=== PATIENT | female | born 1965 | race Two or more races ===

== ENCOUNTER 2023-07-16 13:44 | Emergency (ER) | payer OTHER ==
[2023-07-16 14:00] VITALS: BMI 29.2
[2023-07-16] MEDS ORDERED: AZITHROMYCIN IVPB 500 MG in DEXTROSE 5%-WATER - 250 ML IVPB ONE (16:02)
[2023-07-16] MEDS ORDERED: CEFTRIAXONE 1 GM in DEXTROSE 5%-WATER - 100 ML IVPB ONE (16:02)
[2023-07-16] MEDS ORDERED: CEFTRIAXONE 1 GM/50 ML BAG ONE (16:21)
[2023-07-16] MEDS ORDERED: AZITHROMYCIN IVPB 500 MG/250 ML BAG IVPB ONE ×2 (16:21→16:56)
[2023-07-16 16:44] LABS: BASO % 0.4 % (0-2.0); EOS % 0.7 % (0-4.5); HEMATOCRIT 34.3 % (32.4-45.2); HEMOGLOBIN 11.2 GM/dL (10.7-15.3); LYMPH % 17.3 % (8-40); MCHC 32.7 g/dl (32.0-36.0); MEAN CELL VOLUME 82.6 fl (80-96); MEAN PLT VOLUME 8.4 fl (7.5-11.1); NEUT % 68.6 % (42.8-82.8); PLATELET COUNT 228 10^3/uL (134-434); RBC 4.15 M/mm3 (3.60-5.2); RDW 14.1 % (11.6-15.6); WHITE BLOOD COUNT 10.8 K/mm3 (4.0-10.0)
[2023-07-16 16:52] LABS: EPI CELLS 14 /uL (0-25.1); HYALINE CASTS 0 /uL (0-3.1); URINE APPEARANCE CLEAR; URINE BACTERIA 54 /uL (0-1359); URINE BILIRUBIN NEGATIVE (NEGATIVE); URINE COLOR YELLOW; URINE GLUCOSE (UA) NEGATIVE (NEGATIVE); URINE KETONE NEGATIVE (NEGATIVE); URINE LEUK ESTERASE NEGATIVE (NEGATIVE); URINE NITRITE NEGATIVE (NEGATIVE); URINE PROTEIN NEGATIVE (NEGATIVE); URINE RBC 8 /uL (0-23.9); URINE UROBILINOGEN 0.2 mg/dL (0.2-1.0); URINE WBC 4 /uL (0-25.8)
[2023-07-16 16:59] LABS: POTASSIUM 4.5 mmol/L (3.5-5.1)
[2023-07-16 17:01] LABS: CALCIUM 9.5 mg/dL (8.5-10.1)
[2023-07-16 17:02] LABS: ALBUMIN 3.4 g/dl (3.4-5.0); BLOOD UREA NITROGEN 14.3 mg/dL (7-18)
[2023-07-16 17:05] LABS: CREATININE 0.7 mg/dL (0.55-1.3)
[2023-07-16 17:06] LABS: BILIRUBIN,TOTAL 0.2 mg/dL (0.2-1)
[2023-07-16 17:07] LABS: TOT PROT 7.2 g/dl (6.4-8.2)
[2023-07-16 17:32] VITALS: TEMP 99.1
[2023-07-16] MEDS ORDERED: ACETAMINOPHEN 1000 MG/100 ML BAG IVPB ONE (18:12)
[2023-07-16] MEDS ORDERED: guaiFENesin 200 MG/10 ML 10 ML UNIT-DOSE CUPS PO ONE (18:13)
[2023-07-16] MEDS ORDERED: ACETAMINOPHEN INJECTION 100 ML IVPB ONE (19:05)
[2023-07-16] MEDS ORDERED: guaiFENesin 200 MG/10 ML 10 ML UNIT-DOSE CUPS ONE (19:05)
[2023-07-16] MEDS ORDERED: SODIUM CHLORIDE 0.9% 500 ML INFUS.BAG IV ONE (19:11)
[2023-07-16 20:39] VITALS: BP 105/62; RESP 18
[2023-07-16 20:41] VITALS: PULSE 100
== END 2023-07-16 20:51 | disposition home or self-care (01) ==
LOC: JERFT 13:44
PROC: 3E03329 Introduction of Other Anti-infective into Peripheral Vein, Percutaneous Approach (ICD-10-PCS; principal; 2023-07-16)
PROC: 3E03329 Introduction of Other Anti-infective into Peripheral Vein, Percutaneous Approach (ICD-10-PCS; 2023-07-16)
PROC: 3E033GC Introduction of Other Therapeutic Substance into Peripheral Vein, Percutaneous Approach (ICD-10-PCS; 2023-07-16)
DX: R51.9 Headache, unspecified (principal); M79.10 Myalgia, unspecified site; R50.9 Fever, unspecified; R05.9 Cough, unspecified; R06.02 Shortness of breath; R09.89 Other specified symptoms and signs involving the circulatory and respiratory systems; J18.1 Lobar pneumonia, unspecified organism; Z20.822 Contact with and (suspected) exposure to COVID-19
CPT/HCPCS: 0241U-QW; 71046-TC-FY; 80053; 81003; 84484; 85025; 87086; 93005; 93010; 99285-25

== ENCOUNTER 2023-11-21 15:26 | Inpatient (IN) | payer OTHER ==
[2023-11-21] MEDS ORDERED: ALBUTEROL SO4 2.5/IPRATROPIUM 0.5 INH SOL 3 ML VIAL.NEB. NEB ONE (17:29)
[2023-11-21] MEDS: ALBUTEROL SO4 2.5/IPRATROPIUM 0.5 INH SOL 3 ML VIAL.NEB. NEB ONE (17:44)
[2023-11-21 17:51] LABS: BASO % 1.3 % (0-2.0); EOS % 1.8 % (0-4.5); HEMATOCRIT 37.2 % (32.4-45.2); HEMOGLOBIN 12.3 GM/dL (10.7-15.3); MCH 27.2 pg (25.7-33.7); MEAN CELL VOLUME 82.4 fl (80-96); MEAN PLT VOLUME 8.9 fl (7.5-11.1); MONO % 5.7 % (3.8-10.2); NEUT % 65.2 % (42.8-82.8); PLATELET COUNT 240 10^3/uL (134-434); RBC 4.51 M/mm3 (3.60-5.2); RDW 16.2 % (11.6-15.6); WHITE BLOOD COUNT 6.6 K/mm3 (4.0-10.0)
[2023-11-21 17:55] LABS: VENOUS BASE EXCESS -4.1 mmol/L (-2-2); VENOUS O2 SATURATION 47.8 % (70-80); VENOUS PH 7.316 (7.310-7.410)
[2023-11-21 18:11] LABS: POTASSIUM 4.6 mmol/L (3.5-5.1)
[2023-11-21 18:13] LABS: CALCIUM 9.8 mg/dL (8.5-10.1)
[2023-11-21 18:14] LABS: BLOOD UREA NITROGEN 17.7 mg/dL (7-18)
[2023-11-21 18:17] LABS: CREATININE 0.8 mg/dL (0.55-1.3); PHOSPHOROUS 3.4 mg/dL (2.5-4.9)
[2023-11-21 18:18] LABS: BILIRUBIN,TOTAL 0.4 mg/dL (0.2-1)
[2023-11-21 18:19] LABS: TOT PROT 8.2 g/dl (6.4-8.2)
[2023-11-21 18:20] LABS: N-TERMINAL BNP 8213.7 pg/ml (5-125)
[2023-11-21] MEDS ORDERED: FUROSEMIDE 40 MG/4 ML INJECTABLE VIAL ONE (20:23)
[2023-11-21] MEDS: FUROSEMIDE 40 MG/4 ML INJECTABLE VIAL IVPUSH ONE (20:33)
[2023-11-22 00:24] VITALS: BMI 24.3
[2023-11-22] MEDS ORDERED: FUROSEMIDE 40 MG/4 ML INJECTABLE VIAL IVPUSH SCH (01:00)
[2023-11-22] MEDS ORDERED: ALBUTEROL SO4 2 MG TABLET PO PRN (02:13)
[2023-11-22] MEDS ORDERED: ALBUTEROL SO4 HFA INHALER IH PRN (02:49)
[2023-11-22] MEDS: FUROSEMIDE 40 MG/4 ML INJECTABLE VIAL IVPUSH SCH (03:11)
[2023-11-22] MEDS: ENOXAPARIN NA (PORCINE) 40 MG/0.4 ML DISP.SYRIN SQ SCH (10:02)
[2023-11-22] MEDS: LISINOPRIL 20 MG TABLET PO SCH (10:02)
[2023-11-22] MEDS: metoPROLOL SUCCINATE 25 MG TAB.SR.24H (FP) PO SCH (15:16)
[2023-11-23 07:46] LABS: POTASSIUM 4.9 mmol/L (3.5-5.1)
[2023-11-23 07:51] LABS: ALBUMIN 3.4 g/dl (3.4-5.0); BLOOD UREA NITROGEN 19.1 mg/dL (7-18); CALCIUM 10.2 mg/dL (8.5-10.1)
[2023-11-23 07:55] LABS: BILIRUBIN,TOTAL 0.4 mg/dL (0.2-1); CREATININE 0.8 mg/dL (0.55-1.3)
[2023-11-23 07:56] LABS: TOT PROT 7.1 g/dl (6.4-8.2)
[2023-11-23 09:00] LABS: HEMATOCRIT 37.2 % (32.4-45.2); HEMOGLOBIN 12.1 GM/dL (10.7-15.3); MCH 26.9 pg (25.7-33.7); MCHC 32.4 g/dl (32.0-36.0); MEAN CELL VOLUME 83.1 fl (80-96); MEAN PLT VOLUME 8.9 fl (7.5-11.1); PLATELET COUNT 211 10^3/uL (134-434); RBC 4.48 M/mm3 (3.60-5.2); RDW 15.6 % (11.6-15.6); WHITE BLOOD COUNT 5.5 K/mm3 (4.0-10.0)
[2023-11-23] MEDS: LOSARTAN POTASSIUM 25 MG TABLET PO SCH (09:24)
[2023-11-24 07:37] LABS: HEMOGLOBIN 11.9 GM/dL (10.7-15.3); MCH 26.9 pg (25.7-33.7); MCHC 32.2 g/dl (32.0-36.0); MEAN CELL VOLUME 83.4 fl (80-96); MEAN PLT VOLUME 8.9 fl (7.5-11.1); PLATELET COUNT 196 10^3/uL (134-434); RBC 4.43 M/mm3 (3.60-5.2); WHITE BLOOD COUNT 5.1 K/mm3 (4.0-10.0)
[2023-11-24 07:55] LABS: POTASSIUM 4.9 mmol/L (3.5-5.1)
[2023-11-24 07:57] LABS: CALCIUM 9.4 mg/dL (8.5-10.1)
[2023-11-24 07:58] LABS: BLOOD UREA NITROGEN 21.8 mg/dL (7-18)
[2023-11-24 08:01] LABS: CREATININE 0.7 mg/dL (0.55-1.3)
[2023-11-24 08:20] LABS: MAGNESIUM 2.2 mg/dL (1.8-2.4)
[2023-11-24] MEDS: metoPROLOL SUCCINATE 25 MG TAB.SR.24H (FP) PO SCH (09:48)
[2023-11-24] MEDS: SACUBITRIL/VALSARTAN 24 MG-26 MG TABLET PO SCH (09:48)
[2023-11-24] MEDS: FUROSEMIDE 40 MG/4 ML INJECTABLE VIAL IVPUSH SCH (09:49)
[2023-11-24 11:59] VITALS: RESP 18
[2023-11-25 07:23] LABS: HEMATOCRIT 42.5 % (32.4-45.2); HEMOGLOBIN 14.1 GM/dL (10.7-15.3); MCH 27.2 pg (25.7-33.7); MCHC 33.2 g/dl (32.0-36.0); MEAN PLT VOLUME 8.8 fl (7.5-11.1); PLATELET COUNT 274 10^3/uL (134-434); RBC 5.19 M/mm3 (3.60-5.2); RDW 16.3 % (11.6-15.6); WHITE BLOOD COUNT 5.8 K/mm3 (4.0-10.0)
[2023-11-25 07:44] LABS: POTASSIUM 4.7 mmol/L (3.5-5.1)
[2023-11-25 07:51] LABS: BLOOD UREA NITROGEN 18.3 mg/dL (7-18); CALCIUM 10.2 mg/dL (8.5-10.1); MAGNESIUM 2.3 mg/dL (1.8-2.4)
[2023-11-25 07:54] LABS: PHOSPHOROUS 4.3 mg/dL (2.5-4.9)
[2023-11-25 07:55] LABS: CREATININE 0.9 mg/dL (0.55-1.3)
[2023-11-25] MEDS ORDERED: metoPROLOL SUCCINATE 25 MG TAB.SR.24H (FP) PO SCH (10:30)
[2023-11-25 14:09] VITALS: BP 101/79; PULSE 87; TEMP 98
== END 2023-11-25 16:47 | disposition home or self-care (01) | DRG 194 ==
LOC: JER 15:26 → JERBED 20:22 → J4S 23:05 → JERBED 11-23 09:07 → J4S 11-23 09:08 → OBSVTOIN 11-24 16:26
PROVIDERS: ADMIT Internal Medicine; ATTEND Internal Medicine
DX: I11.0 Hypertensive heart disease with heart failure (principal); I27.20 Pulmonary hypertension, unspecified; I42.0 Dilated cardiomyopathy; E78.5 Hyperlipidemia, unspecified; J45.909 Unspecified asthma, uncomplicated; I50.23 Acute on chronic systolic (congestive) heart failure
CPT/HCPCS: 0241U-QW; 36415; 71045-TC-FY; 71275-TC; 80048; 80053; 80061; 82803; 83036; 83735; 83880; 84100; 84439; 84443; 84484; 85025; 85027; 85379; 93005; 93010; 93306-TC; 99285-25; G0378; Q9967